=== PATIENT | male | born 1990 | race Caucasian/White ===

== ENCOUNTER 2021-09-08 11:34 | Emergency (ER) | payer MEDICAID ==
[~2021-09-08] VITALS: Ht 193 cm; Wt 59.0 kg
[2021-09-08 11:36] VITALS: BP 110/52
== END 2021-09-08 12:56 | disposition left against medical advice (07) ==
LOC: ER 11:34
DX: Z53.21 Procedure and treatment not carried out due to patient leaving prior to being seen by health care provider (principal)